=== PATIENT | female | born 1955 ===

== ENCOUNTER 2021-08-26 13:16 | Inpatient (IN) | payer OTHER ==
[~2021-08-26] VITALS: Ht 162.6 cm; Wt 62.1 kg
[2021-08-26 14:44] LABS: BASOPHIL 0.4 % (0-2); EOSINOPHIL 0 % (0-7); HCT 36.1 % (37.0-47.0); HGB 11.6 g/dl (12.5-16.0); LYMPHOCYTE 4.5 % (15-48); MCH 27.4 pg (25.0-31.0); MCHC 32.1 g/dL (32.0-36.0); MCV 85.3 fL (78.0-100.0); MONOCYTE 2.6 % (0-12); MPV 8.9 fL (6.0-9.5); NRBC 0; PLT 582 K/uL (150-400); RBC 4.23 M/uL (4.20-5.40); RDW 14.4 % (11.5-14.0)
[2021-08-26 14:46] LABS: WBC 42.3 K/uL (4.0-10.5)
[2021-08-26 15:05] LABS: LACTIC ACID 2.3 mmol/L (0.4-1.9)
[2021-08-26 15:13] LABS: ALBUMIN 2.4 g/dL (3.4-5.0); BILIRUBIN - TOTAL 0.9 mg/dL (0.2-1.0); CREATININE 1.93 mg/dL (0.51-0.95); GLOBULIN (CALCULATION) 6.2 g/dL; POTASSIUM 5.2 mmol/L (3.5-5.1); TOTAL PROTEIN 8.6 g/dL (6.4-8.2)
[2021-08-26 15:39] LABS: CORONAVIRUS 2019 SARS-COV-2 NEGATIVE (NEGATIVE); INFLUENZA A NAA NEGATIVE (NEGATIVE)
[2021-08-26 16:12] LABS: BILIRUBIN NEGATIVE (NEGATIVE); BLOOD 2+ Ery/uL (NEGATIVE); CLARITY CLEAR (CLEAR); COLOR YELLOW (YELLOW); GLUCOSE (U) NORMAL (NORMAL); LEUKOCYTES 3+ Leu/uL (NEGATIVE); NITRITE NEGATIVE (NEGATIVE); PROTEIN 2+ mg/dL (NEGATIVE); UROBILINOGEN 0.2 mg/dL (0.2-1.0)
[2021-08-26 16:20] LABS: BACTERIA 3+; URINARY WBC TNTC
[2021-08-26 17:08] LABS: BASOPHIL 0.5 % (0-2); EOSINOPHIL 0 % (0-7); HCT 30.5 % (37.0-47.0); HGB 9.8 g/dl (12.5-16.0); LYMPHOCYTE 5.6 % (15-48); MCH 27.5 pg (25.0-31.0); MCHC 32.1 g/dL (32.0-36.0); MCV 85.7 fL (78.0-100.0); MONOCYTE 2.3 % (0-12); MPV 8.7 fL (6.0-9.5); NRBC 0; PLT 457 K/uL (150-400); RBC 3.56 M/uL (4.20-5.40); RDW 14.5 % (11.5-14.0)
[2021-08-26 17:12] LABS: NEUTROPHIL 86.8 % (41-80); WBC 33.8 K/uL (4.0-10.5)
[2021-08-26 17:49] LABS: BUN/CREAT RATIO (CALC) 37.8 RATIO; CREATININE 1.8 mg/dL (0.51-0.95); POTASSIUM 4.1 mmol/L (3.5-5.1)
[2021-08-26] MEDS ORDERED: VENTOLIN (2.5 MG/3 M INH (22:48)
[2021-08-26] MEDS ORDERED: CALCIUM CITRAT1 EA10 PO (22:50)
[2021-08-26] MEDS ORDERED: NEURONTIN400 MG PO (22:50)
[2021-08-27 07:11] LABS: BASOPHIL 0.2 % (0-2); EOSINOPHIL 0 % (0-7); HCT 26.8 % (37.0-47.0); HGB 8.3 g/dl (12.5-16.0); LYMPHOCYTE 5.9 % (15-48); MCV 87.3 fL (78.0-100.0); NEUTROPHIL 86.7 % (41-80); NRBC 0; PLT 426 K/uL (150-400); RBC 3.07 M/uL (4.20-5.40); RDW 14.6 % (11.5-14.0)
[2021-08-27 07:31] LABS: CREATININE 1.35 mg/dL (0.51-0.95); FT4 (FREE T4) 1.5 ng/dL (0.76-1.46); POTASSIUM 3.4 mmol/L (3.5-5.1)
[2021-08-27 07:36] LABS: WBC 35.5 K/uL (4.0-10.5)
[2021-08-28 07:53] LABS: HCT 26.6 % (37.0-47.0); HGB 8.1 g/dl (12.5-16.0); MCH 27.7 pg (25.0-31.0); MCHC 30.5 g/dL (32.0-36.0); MCV 91.1 fL (78.0-100.0); RBC 2.92 M/uL (4.20-5.40); RDW 14.8 % (11.5-14.0); WBC 21.3 K/uL (4.0-10.5)
[2021-08-28 08:17] LABS: CREATININE 1.04 mg/dL (0.51-0.95); POTASSIUM 3.5 mmol/L (3.5-5.1)
--- NOTE | 2021-08-28 21:32 | NUR ---
PATIENT IV RATE IS 125CC/HR NOT 75CC/HR DOCUMENTED IN ERROR.
--- NOTE | 2021-08-29 09:58 | NUR ---
MET WITH PT. SHE ADVISED THAT SHE HAS A PRIMARY PHYSICIAN, IT IS ISIS LEARY APRN AT [facility], IN [place], [place]. PT. ALSO ADVISED THAT BECAUSE OF THE INSURANCE SHE HAS SHE CANNOT HAVE PHYSICAL THERAPY. SHE IS UNSURE ABOUT HH. PT. REPORTED THAT SHE HAS A ROLLATOR, [employer] AND E[employer]. SHE HAS A SON AND DAUGHTER AND 3 ADULT GRANDCHILDREN. SHE REPORTS THAT HER FAMILY IS SUPPORTIVE AND VERY HELPFUL TO HER.
[2021-08-30] MEDS ORDERED: AMPICILLIN TRI500 MG PO (13:35)
[2021-08-30] MEDS ORDERED: LEVAQUIN500 MG PO (13:35)
--- NOTE | 2021-08-30 15:44 | NUR ---
TC TO [facility]. THEY ARE BOTH ON DIVERSION. TC TO [facility], THEY DO NOT ACCEPT PT. INSURANCE. ATTEMPTED TO CONTACT PT INSURANCE FOR A LIST OF PROVIDERS, BUT WASN'T ABLE TO GET THROUGH TO THE INSURANCE COMPANY. ADVISED DR. RITTER THAT THERE IS NO HH AVAILABLE AT THIS TIME.
== END 2021-08-30 17:30 | disposition home or self-care (01) | DRG 872 ==
LOC: FER 13:16 → FMS 18:30
PROVIDERS: Nurse Practitioner; Nurse Practitioner Acute Care; Physician Assistant; ADMIT Internal Medicine
PROC: 0T9B70Z Drainage of Bladder with Drainage Device, Via Natural or Artificial Opening (ICD-10-PCS; principal; 2021-08-26)
DX: A40.1 Sepsis due to streptococcus, group B (principal); N13.6 Pyonephrosis; N17.9 Acute kidney failure, unspecified; E87.2 Acidosis; E87.1 Hypo-osmolality and hyponatremia; A41.59 Other Gram-negative sepsis; R65.20 Severe sepsis without septic shock; Z20.822 Contact with and (suspected) exposure to COVID-19; B96.1 Klebsiella pneumoniae [K. pneumoniae] as the cause of diseases classified elsewhere; N31.9 Neuromuscular dysfunction of bladder, unspecified; R33.9 Retention of urine, unspecified; M51.34 Other intervertebral disc degeneration, thoracic region; M51.36 Other intervertebral disc degeneration, lumbar region; E87.6 Hypokalemia; R26.9 Unspecified abnormalities of gait and mobility; M47.816 Spondylosis without myelopathy or radiculopathy, lumbar region; M19.90 Unspecified osteoarthritis, unspecified site; I10 Essential (primary) hypertension; E78.5 Hyperlipidemia, unspecified; Z90.49 Acquired absence of other specified parts of digestive tract; Z88.1 Allergy status to other antibiotic agents; Z79.899 Other long term (current) drug therapy; Z87.891 Personal history of nicotine dependence
CPT/HCPCS: 36415; 71250; 72131; 72148; 80048; 80053; 80202; 81001; 83605; 83690; 83880; 84145; 84439; 84443; 84484; 85025; 87040; 87076; 87077; 87088; 87186; 93005; 94760; 96365; 96375; 97110; 97116; 97162; 97166; 97530; 97530-GP; 97535; J0696; J1650; J2185; J2405; J2543; J3370; J7030; J7050; U0002